=== PATIENT | female | born 1990 | race Caucasian/White ===

== ENCOUNTER → 2016-10-20 | Outpatient (REF) | payer OTHER | LOC: M LAB REF 16:08 | PROVIDERS: ATTEND Physician Assistant | DX: N39.0 Urinary tract infection, site not specified (principal) ==

== ENCOUNTER → 2017-01-17 | Outpatient (CLI) | payer OTHER ==
[~2017-01-17] MED LIST: ASPI325T PO; OXYC1TAB23 PO
[2017-01-17 20:36] LABS: BASO % 0.5 % (0.0-1.0); EOS # 0.1 K/mm3 (0.0-0.50); LARGE UNSTAINED CELL # 0.1 K/mm3 (0.0-0.4); LARGE UNSTAINED CELL % 1.8 % (0.0-4.0); LYMPH # 2.1 K/mm3 (1.5-6.5); LYMPH % 42.1 % (24.0-44.0); MEAN CORPUSCULAR HEMOGLOBIN 32.1 pg (27.0-33.0); MEAN CORPUSCULAR HGB CONC 33.6 g/dl (32.0-36.5); MEAN CORPUSCULAR VOLUME 95.7 fl (80.0-96.0); MONO # 0.3 K/mm3 (0.0-0.8); MONO % 5.8 % (0.0-5.0); NEUTROPHILS # 2.3 K/mm3 (1.8-7.7); NEUTROPHILS % 47.9 % (36.0-66.0); PLATELET COUNT, AUTOMATED 222 k/mm3 (150-450); RED CELL DISTRIBUTION WIDTH 11.9 % (11.5-14.5); WHITE BLOOD COUNT 4.8 K/mm3 (4.0-10.0)
[2017-01-18 09:31] LABS: HBsAg Prenatal NEGATIVE (NEGATIVE)
== END ==
LOC: M LRY 18:09
PROVIDERS: ATTEND Obstetrics & Gynecology
DX: Z34.81 Encounter for supervision of other normal pregnancy, first trimester (principal)

== ENCOUNTER → 2017-01-20 | Day surgery (SDC) | payer OTHER ==
[~2017-01-20] VITALS: Ht 165.1 cm; Wt 43.1 kg
[~2017-01-20] MED LIST changes: +DOXYCYCLINE HYCLATE 100 MG TAB PO ONE; +DOXYCYCLINE HYCLATE 100 MG in D5W MINI-BAG PLUS 100 ML IV ONE; +LIDOCAINE 2% INJ 100 MG/5 ML SDV (FOR ANES.) As Ordered ONE; +LR 1,000 ML IV ONE; +LR 1,000 ML IV SCH; +METHYLERGONOVINE MALEATE 0.2 MG/ML VIAL (J2210) As Ordered ONE; +MIDAZOLAM INJ 2 MG/2 ML VIAL (J2250) As Ordered ONE; +ONDANSETRON 4MG/2ML VIAL (J2405) As Ordered ONE; +ONDANSETRON 4MG/2ML VIAL (J2405) IV PRN; +PERCOCET 5MG/325MG TAB PO PRN; +PROPOFOL 200 MG/20 ML VIAL As Ordered ONE; +SEVOFLURANE INHAL SOLN 250 ML BTL As Ordered ONE; +SILVER NITRATE APPLICATOR As Ordered ONE; +dexameTHASONE 4 MG/ML 1ML VIAL (J1100) As Ordered ONE; +ePHEDrine SULFATE 25 MG/5 ML(5MG/ML) SYRINGE As Ordered ONE; +fentaNYL 100 MCG/2 ML INJECTION (J3010) As Ordered ONE; +fentaNYL 100 MCG/2 ML INJECTION (J3010) IV PRN
[2017-01-20 15:41] LABS: MEAN CORPUSCULAR HEMOGLOBIN 32.5 pg (27.0-33.0); MEAN CORPUSCULAR HGB CONC 34.4 g/dl (32.0-36.5); MEAN CORPUSCULAR VOLUME 94.5 fl (80.0-96.0); WHITE BLOOD COUNT 4.7 K/mm3 (4.0-10.0)
[2017-01-20 19:50] VITALS: BP 103/50
--- NOTE | 2017-01-22 09:53 | RO ---
DATE OF PROCEDURE: 01/20/2017 PREOPERATIVE DIAGNOSIS: Missed with an anembryonic demise. POSTOPERATIVE DIAGNOSIS: Missed with an anembryonic demise. PROCEDURE PERFORMED: Suction dilation and curettage (D and C). SURGEON: Dr. Michael Centeno DO FACOG CREDIT CONTROL MANAGER: ADAMARIS Benitez III ANESTHESIA: General via laryngeal mask airway (LMA). SPECIMENS SENT TO PATHOLOGY: Products of conception. ESTIMATED BLOOD LOSS: 300 mL fluids. REPLACED: 600 mL lactated Ringers. DRAINS: 350 mL urine output via in-and-out catheter. COMPLICATIONS: None. UTEROTONICS: Methergine 0.2 mg IM times one. PREOPERATIVE ANTIBIOTICS: doxycycline 100 mg IV times one. INTRAOPERATIVE FINDINGS: Uterus sounded to 10 cm, retroverted, retroflexed uterus. Intrauterine tissue grossly consistent with products of conception. INDICATIONS: The patient is a 26-year-old, (G)3, para (P) 2-0-1-2. She was approximately 8 weeks gestation in the office and it was noted on ultrasound that she had an anembryonic gestation. The gestational sac measured 45 mm without any evidence of a yolk sac or pole. The gestational sac was eccentric and oblong shaped. This was indicative of an anembryonic gestation. I offered expectant, medical and surgical management. She has chose to proceed with surgical management via suction D and C. PROCEDURE: The patient was counseled and consented on the risks, benefits, indications and alternatives of the procedure. Informed consent was obtained. She was taken to the operating room with an IV running and placed on the operating table in the dorsal supine position. General anesthesia was administered and the airway secured without any difficulty. She was placed in low lithotomy position. She was prepared and draped in a normal sterile fashion. A time-out was performed per protocol. A sterile in-and-out catheter was placed transurethrally and into the bladder and the bladder was drained. The catheter was removed. The sterile speculum was placed into the vagina. The cervix was easily visualized. The anterior lip of the cervix was grasped with a single-tooth tenaculum and downward traction was applied. The uterus was sounded to 10 cm. The cervix was sequentially dilated with Evangelist dilators up to a #20. The size 9 curved Vacurette was placed transcervically into the intrauterine cavity and suction was applied. Tissue and blood was evacuated. The tissue was grossly consistent with products of conception. After multiple passes with the Vacurette, there was minimal return of tissue and blood. The Vacurette was removed. The sharp curette was placed transcervically into the intrauterine cavity and sharp curettage was performed throughout the intrauterine cavity until gritty texture was noted throughout. Minimal tissue return was noted. The Vacurette was then placed transcervically into the intrauterine cavity for one additional pass with minimal blood and tissue return. The Vacurette was removed. Minimal bleeding from the cervical os was noted and 0.2 mg Methergine IM was given to maintain hemostasis. The sponge, lap, needle, and instrument counts were correct. The single-tooth tenaculum was removed. The tenaculum sites were cauterized with silver nitrate. All instruments were removed from vagina. Again, the instrument and sponge counts were correct. The patient tolerated the entire procedure well. She was transferred to the postanesthesia care unit (PACU) in good and stable condition. NAVDEEP
== END | disposition home or self-care (01) ==
LOC: M SDC 15:11
PROVIDERS: ATTEND Obstetrics & Gynecology
DX: O02.1 Missed abortion (principal); F31.9 Bipolar disorder, unspecified; G43.909 Migraine, unspecified, not intractable, without status migrainosus; J45.909 Unspecified asthma, uncomplicated; Z72.0 Tobacco use
CPT/HCPCS: 36415; 59820; 85027; 86850; 86900; 86901; 88305; J1100; J2210; J2250; J2405; J3010

== ENCOUNTER 2017-04-17 17:27 | Emergency (ER) | payer OTHER ==
[~2017-04-17] VITALS: Ht 165.1 cm; Wt 39.2 kg
[~2017-04-17 17:27] MED LIST changes: -DOXYCYCLINE HYCLATE 100 MG TAB PO ONE; -DOXYCYCLINE HYCLATE 100 MG in D5W MINI-BAG PLUS 100 ML IV ONE; -LIDOCAINE 2% INJ 100 MG/5 ML SDV (FOR ANES.) As Ordered ONE; -LR 1,000 ML IV ONE; -LR 1,000 ML IV SCH; -METHYLERGONOVINE MALEATE 0.2 MG/ML VIAL (J2210) As Ordered ONE; -MIDAZOLAM INJ 2 MG/2 ML VIAL (J2250) As Ordered ONE; -ONDANSETRON 4MG/2ML VIAL (J2405) As Ordered ONE; -ONDANSETRON 4MG/2ML VIAL (J2405) IV PRN; -PERCOCET 5MG/325MG TAB PO PRN; -PROPOFOL 200 MG/20 ML VIAL As Ordered ONE; -SEVOFLURANE INHAL SOLN 250 ML BTL As Ordered ONE; -SILVER NITRATE APPLICATOR As Ordered ONE; -dexameTHASONE 4 MG/ML 1ML VIAL (J1100) As Ordered ONE; -ePHEDrine SULFATE 25 MG/5 ML(5MG/ML) SYRINGE As Ordered ONE; -fentaNYL 100 MCG/2 ML INJECTION (J3010) As Ordered ONE; -fentaNYL 100 MCG/2 ML INJECTION (J3010) IV PRN
[2017-04-17] MEDS ORDERED: NAPROXEN 250 MG TAB PO ONE (21:00)
[2017-04-17 21:15] VITALS: BP 118/65
[2017-04-17] MEDS ORDERED: OXYCODONE/APAP 5MG/325MG(BULK FOR ED) 1 TABLET PO ONE (21:30)
--- NOTE | 2017-04-18 07:50 | REP ---
Right great toe four views : There is no fracture or dislocation. Mineralization and joint spaces are normal. There are no calcifications or foreign bodies. Impression: Negative right great toe . Signed by Vitaliy Robledo MD 04/18/2017 07:40 A
== END 2017-04-17 21:35 | disposition home or self-care (01) ==
LOC: M ED 17:27
DX: S90.111A Contusion of right great toe without damage to nail, initial encounter (principal); W23.0XXA Caught, crushed, jammed, or pinched between moving objects, initial encounter; Y92.018 Other place in single-family (private) house as the place of occurrence of the external cause; Y99.9 Unspecified external cause status; Y93.9 Activity, unspecified

== ENCOUNTER → 2017-06-13 | Outpatient (CLI) | payer OTHER, SELFPAY ==
[2017-06-13 20:56] LABS: BASO % 0.3 % (0.0-1.0); EOS # 0.1 10^3/uL (0.0-0.50); EOS % 1.3 % (0.0-3.0); IMMATURE GRANULOCYTE % 0.2 % (0-0); LYMPH % 33.8 % (24.0-44.0); MEAN CORPUSCULAR HEMOGLOBIN 31.4 pg (27.0-33.0); MEAN CORPUSCULAR HGB CONC 33.1 g/dl (32.0-36.5); MEAN CORPUSCULAR VOLUME 94.9 fl (80.0-96.0); MONO # 0.6 10^3/uL (0.0-0.8); MONO % 10.4 % (0.0-5.0); NEUTROPHILS # 3.2 10^3/uL (1.8-7.7); PLATELET COUNT, AUTOMATED 234 10^3/uL (150-450); RED CELL DISTRIBUTION WIDTH 12.7 % (11.5-14.5)
[2017-06-13 21:04] LABS: ADD MORPHOLOGY? NO
[2017-06-14 10:40] LABS: HBsAg Prenatal NEGATIVE (NEGATIVE)
== END ==
LOC: M WUC 17:19
PROVIDERS: ATTEND Obstetrics & Gynecology
DX: Z34.81 Encounter for supervision of other normal pregnancy, first trimester (principal)

== ENCOUNTER → 2017-08-21 | Outpatient (CLI) | payer BC ==
--- NOTE | 2017-08-21 12:07 | REP ---
Obstetric ultrasound: There is a single intrauterine gestation in a vertex presentation. There is movement and cardiac activity. heart rate is 141 beats per minute. The placenta is anterior. There is no placenta previa or abruptio. Placenta is grade zero. The amniotic fluid volume subjectively is normal. The cervix is 4.0 cm length. By the ultrasound today gestational age is 18 weeks 1 day. By LMP gestational age is 17 weeks 6 days. MARIELOS of 01/23/2018. weight is 218 grams (0 pounds, 7 ounces). This is the 50th percentile for 17 weeks 6 days. The following anatomic structures are identified and are unremarkable: Intracranial lateral ventricles, choroid plexus, cerebellum, cisterna magna, nuchal fold, face, facial profile, upper lip, lungs, four-chamber heart, left ventricular cardiac outflow tract, diaphragm, stomach, cord insertion, three-vessel cord, kidneys, bladder, spine and upper lower extremities. Suboptimally demonstrated is the cardiac left ventricular outflow tract. A followup study dedicated to this structure might be considered. Otherwise, there are no anomalies. Signed by Vitaliy Robledo MD 08/21/2017 11:57 A
== END ==
LOC: M LRY 08:17
PROVIDERS: ATTEND Obstetrics & Gynecology
DX: Z36.2 Encounter for other antenatal screening follow-up (principal)

== ENCOUNTER → 2017-08-27 | Outpatient (REF) | payer BC | LOC: M SFHCLERA 13:32 | PROVIDERS: ATTEND Nurse Practitioner Family | DX: J02.9 Acute pharyngitis, unspecified (principal) ==

== ENCOUNTER → 2017-10-31 | Outpatient (CLI) | payer BC ==
[2017-10-31 20:20] LABS: HEMATOCRIT 28.7 % (36.0-47.0); HEMOGLOBIN 9.4 g/dl (12.0-16.0); MEAN CORPUSCULAR HEMOGLOBIN 33.3 pg (27.0-33.0); MEAN CORPUSCULAR HGB CONC 32.8 g/dl (32.0-36.5); MEAN CORPUSCULAR VOLUME 101.8 fl (80.0-96.0); PLATELET COUNT, AUTOMATED 195 10^3/uL (150-450); RED BLOOD COUNT 2.82 10^6/uL (4.00-5.40); RED CELL DISTRIBUTION WIDTH 13.4 % (11.5-14.5); WHITE BLOOD COUNT 9.3 10^3/uL (4.0-10.0)
[2017-10-31 20:28] LABS: GLUCOSE CHALLENGE TEST 1 HOUR 144 MG/DL (LESS THAN 140)
== END ==
LOC: M LRY 11:08
DX: Z34.82 Encounter for supervision of other normal pregnancy, second trimester (principal)
CPT/HCPCS: 82950

== ENCOUNTER → 2017-11-08 | Outpatient (CLI) | payer BC ==
[2017-11-08 09:00] LABS: GLUCOSE, FASTING 83 MG/DL (LESS THAN 95)
[2017-11-08 10:02] LABS: 1 HR GLUCOSE 130 MG/DL (LESS THAN 180)
[2017-11-08 11:35] LABS: 2 HR GLUCOSE 116 MG/DL (LESS THAN 155)
[2017-11-08 12:06] LABS: 3 HR GLUCOSE 81 MG/DL (LESS THAN 140)
== END ==
LOC: M LAB 08:00
DX: Z36.89 Encounter for other specified antenatal screening (principal); Z3A.00 Weeks of gestation of pregnancy not specified
CPT/HCPCS: 82951

== ENCOUNTER → 2017-11-23 | Outpatient (CLI) | payer OTHER | LOC: M LRY 13:48 | DX: O26.843 Uterine size-date discrepancy, third trimester (principal) ==

== ENCOUNTER → 2017-12-25 | Outpatient (CLI) | payer OTHER ==
[2017-12-25 17:58] LABS: HEMATOCRIT 28.3 % (36.0-47.0); HEMOGLOBIN 9.4 g/dl (12.0-15.5); MEAN CORPUSCULAR HEMOGLOBIN 33.2 pg (27.0-33.0); MEAN CORPUSCULAR HGB CONC 33.2 g/dl (32.0-36.5); PLATELET COUNT, AUTOMATED 201 10^3/uL (150-450); RED BLOOD COUNT 2.83 10^6/uL (4.00-5.40); RED CELL DISTRIBUTION WIDTH 13.4 % (11.5-14.5); WHITE BLOOD COUNT 7.6 10^3/uL (4.0-10.0)
== END ==
LOC: M LRY 14:28
DX: Z36.89 Encounter for other specified antenatal screening (principal); Z3A.00 Weeks of gestation of pregnancy not specified
CPT/HCPCS: 85027

== ENCOUNTER → 2017-12-26 | Outpatient (REF) | payer OTHER | LOC: M LAB REF 17:09 | DX: Z34.83 Encounter for supervision of other normal pregnancy, third trimester (principal) ==

== ENCOUNTER 2018-01-19 09:03 | Inpatient (IN) | payer OTHER ==
[2018-01-19] MEDS: PRENATAL VITAMINS CHEWABLE TABLET PO (09:00)
[2018-01-19] MEDS ORDERED: LR 1,000 ML IV (10:37)
[2018-01-19 10:43] LABS: HEMATOCRIT 32.2 % (36.0-47.0); HEMOGLOBIN 10.8 g/dl (12.0-15.5); MEAN CORPUSCULAR HEMOGLOBIN 32.9 pg (27.0-33.0); MEAN CORPUSCULAR HGB CONC 33.5 g/dl (32.0-36.5); MEAN CORPUSCULAR VOLUME 98.2 fl (80.0-96.0); PLATELET COUNT, AUTOMATED 218 10^3/uL (150-450); RED BLOOD COUNT 3.28 10^6/uL (4.00-5.40); RED CELL DISTRIBUTION WIDTH 13.9 % (11.5-14.5); WHITE BLOOD COUNT 14.9 10^3/uL (4.0-10.0)
[2018-01-19] MEDS ORDERED: FENTANYL 2MCG/ML ROPIVACAINE 0.2% IN 0.9% NACL 200ML IVBAG As Ordered (11:03)
[2018-01-19] MEDS ORDERED: ONDANSETRON 4MG/2ML VIAL (J2405) IV (12:00)
[2018-01-19] MEDS ORDERED: REFRIGERATOR IV KEYS XX (12:00)
[2018-01-19] MEDS ORDERED: EPIDURAL COMMENT XX (12:00)
[2018-01-19] MEDS ORDERED: LACTATED RINGER'S 1000 ML IV (12:00)
[2018-01-19] MEDS ORDERED: ePHEDrine SULFATE 25 MG/5 ML(5MG/ML) SYRINGE IV (12:00)
[2018-01-19] MEDS ORDERED: EPIDURAL/PCA KEYS XX (12:00)
[2018-01-19] MEDS ORDERED: diphenhydrAMINE INJ 50MG/ML VIAL (J1200) IV (12:00)
[2018-01-19] MEDS ORDERED: NALOXONE INJ 0.4 MG/1 ML VIAL (J2310) IV (12:00)
[2018-01-19] MEDS ORDERED: FENTANYL/ROPIVACAINE/NACL BAG 200 ML EPIDURAL (12:00)
[2018-01-19] MEDS ORDERED: OXYTOCIN 30 UNITS IN 0.9% NaCl 500ML IV BAG (J2590) As Ordered (12:55)
[2018-01-19] MEDS ORDERED: IBUPROFEN 800 MG TAB PO (13:30)
[2018-01-19] MEDS ORDERED: ACETAMINOPHEN 500 MG TAB PO (13:30)
[2018-01-19] MEDS ORDERED: METOCLOPRAMIDE INJ 10MG/2ML VIAL (J2765) IV (13:30)
[2018-01-19] MEDS ORDERED: DIBUCAINE 1% OINTMENT 30GM TOP (13:30)
[2018-01-19] MEDS ORDERED: MOM 30ML SUSPENSION UDC PO (13:30)
[2018-01-19] MEDS ORDERED: METHYLERGONOVINE MALEATE 0.2 MG TAB PO (13:30)
[2018-01-19] MEDS ORDERED: ANUSOL HC CREAM 30GM TOP (13:30)
[2018-01-19] MEDS: OXYTOCIN DRIP 30 UNITS in APPROPRIATE DILUENT 1 EA IV (13:43)
[2018-01-19] MEDS: RHOGAM 300 MCG (1500 IU) INJ (J2790) IM (19:22)
[2018-01-19] MEDS: MEASLES,MUMPS,RUBELLA VACCINE INJ (MMR-II) (90707) SC (19:22)
[2018-01-19] MEDS: DOCUSATE SODIUM 100 MG CAP PO (19:48)
[2018-01-20] MEDS: PRENATAL VITAMINS CHEWABLE TABLET PO (07:55)
== END 2018-01-21 14:05 | disposition home or self-care (01) | DRG 560 ==
LOC: M LDO 09:03 → M LDI 10:07 → M OBS 15:24
PROVIDERS: Obstetrics & Gynecology
PROC: 10E0XZZ Delivery of Products of Conception, External Approach (ICD-10-PCS; principal; 2018-01-19)
DX: O80 Encounter for full-term uncomplicated delivery (principal); Z37.0 Single live birth; Z3A.39 39 weeks gestation of pregnancy